=== PATIENT | male | born 1940 | race Caucasian/White ===

== ENCOUNTER → 2018-06-21 09:26 | Outpatient (CLI) | payer MEDICARE, BC, OTHER ==
[2012-10-29 07:40] VITALS: BMI 30.6
[~2018-06-21 09:26] MED LIST: GLUCOPHAGE500 MG PO; GLYBURIDE MICRON3 MG PO; GLYBURIDE MICRON6 MG PO; LISINOPRIL10 MG PO; NITROSTAT0.4 MG SL; PLAVIX75 MG PO; PRINIVIL20 MG PO; SYNTHROID125 MCG PO; TENORMIN25 MG PO
== END | disposition home or self-care (01) ==
LOC: D.HCCARDIO 09:26
PROVIDERS: ATTEND Internal Medicine Cardiovascular Disease
DX: I34.0 Nonrheumatic mitral (valve) insufficiency (principal)

== ENCOUNTER → 2019-02-05 10:56 | Outpatient (CLI) | payer MEDICARE, BC, OTHER ==
[2012-10-29 07:40] VITALS: BMI 30.6
== END | disposition home or self-care (01) ==
LOC: D.HCCARDIO 10:56
PROVIDERS: ATTEND Internal Medicine Cardiovascular Disease
DX: I25.10 Atherosclerotic heart disease of native coronary artery without angina pectoris (principal)